=== PATIENT | male | born 1960 | race Caucasian/White ===

== ENCOUNTER → 2017-11-09 | Outpatient (CLI) | payer OTHER ==
[~2017-11-09] MED LIST: GADOBUTROL 7.5 MMOL/7.5 ML VIAL ONE
== END | disposition home or self-care (01) ==
LOC: CFH 14:39
PROVIDERS: ATTEND Registered Nurse Registered Nurse First Assistant
DX: M50.323 Other cervical disc degeneration at C6-C7 level (principal); R51 Headache
CPT/HCPCS: 70553; 72141; A9585